=== PATIENT | female | born 1980 | race Caucasian/White ===

== ENCOUNTER 2023-12-14 06:17 | Outpatient (CLI) | payer MEDICAID | END 2023-12-14 23:59 | disposition home or self-care (01) | LOC: MRI02 06:17 | PROVIDERS: ATTEND Surgery | DX: M48.07 Spinal stenosis, lumbosacral region (principal); M25.48 Effusion, other site; M54.42 Lumbago with sciatica, left side | CPT/HCPCS: 72148 ==